=== PATIENT | male | born 1980 | race Caucasian/White ===

== ENCOUNTER 2018-02-05 20:45 | Emergency (ER) | payer BC ==
[2018-02-05 20:50] VITALS: BP 157/86; PULSE 92; TEMP 98.6; BMI 33.9
[2018-02-05] MEDS ORDERED: IBUPROFEN 400 MG TABLET (FP) PO ONE ×2 (21:19→21:26)
--- NOTE | 2018-02-05 21:31 | PDOC ---
History of Present Illness - General Chief Complaint: Injury Stated Complaint: ANKLE INJURY Time Seen by Provider: 02/05/18 21:00 History Source: Patient - History of Present Illness Occurred: reports: this evening Lower Extremity Pain Location: left: foot Method of Injury: Yes: twisted Past History - Past Medical History Allergies/Adverse Reactions: Allergies Allergy/AdvReac Type Severity Reaction Status Date / Time No Known Allergies Allergy Verified 02/05/18 20:47 Home Medications: Ambulatory Orders Oxycodone HCl/Acetaminophen [Oxycodone-Acetaminophen 10-325] 1 each PO ASDIR 11/18 COPD: No - Suicide/Smoking/Psychosocial Hx Smoking History: Never smoked Review of Systems - Review of Systems Musculoskeletal: Yes: Joint Pain. No: Joint Swelling *Physical Exam - Vital Signs Last Vital Signs Temp Pulse Resp BP Pulse Ox 98.6 F 92 H 18 157/86 97 02/05/18 20:47 02/05/18 20:47 02/05/18 20:47 02/05/18 20:47 02/05/18 20:47 - Physical Exam General Appearance: Yes: Appropriately Dressed. No: Apparent Distress HEENT: positive: Normal Voice Neck: positive: Supple Respiratory/Chest: negative: Respiratory Distress Extremity: positive: Tender (to ball of L foot, no joint swelling/deformity). negative: Swelling Integumentary: positive: Dry, Warm Neurologic: positive: Fully Oriented, Alert, Normal Mood/Affect ED Treatment Course - RADIOLOGY Radiology Studies Ordered: Category Date Time Status ANKLE & FOOT-LEFT* [RAD] Stat Radiology 02/05/18 21:19 Ordered Medical Decision Making - Medical Decision Making 02/05/18 21:26 37-year-old male, no significant history, here with left foot pain after injury. Patient states he works for [employer] and while getting off vehicle at work tonight, he triped and fell "twisting" L foot/ankle. Complaining of pain mostly to ball of L foot and toes. Able to bear weight but painful. Denies any other injuries. Patient well-appearing and stable with exam only remarkable for tenderness to ball of left foot diffusely. Most likely muscular. X-ray rule out fracture. Pain control in ED 02/05/18 21:44 X-ray negative for fracture. Ortho shoe and crutches given. DC with Motrin to take as needed for pain and to follow-up with orthopedic if pain persists after 2 weeks *DC/Admit/Observation/Transfer Diagnosis at time of Disposition: Foot injury Qualifiers: Encounter type: initial encounter Laterality: left Qualified Code(s): S99.922A - Unspecified injury of left foot, initial encounter - Discharge Dispostion Disposition: HOME Condition at time of disposition: Good - Referrals - Patient Instructions Printed Discharge Instructions: DI for Foot Sprain Additional Instructions: Take motrin for pain as needed and use crutches for assisted weight bearing until symptoms resolve. If pain persist after 2 weeks, please follow-up with Dr. Loomis of orthopedics - Post Discharge Activity Forms/Work/School Notes: Back to Work
--- NOTE | 2018-02-05 22:15 | PDOC ---
*Physical Exam - Vital Signs Last Vital Signs Temp Pulse Resp BP Pulse Ox 98.6 F 92 H 18 157/86 97 02/05/18 20:47 02/05/18 20:47 02/05/18 20:47 02/05/18 20:47 02/05/18 20:47 ED Treatment Course - RADIOLOGY Radiology Studies Ordered: Category Date Time Status ANKLE & FOOT-LEFT* [RAD] Stat Radiology 02/05/18 21:19 Taken - Medications Given in the ED: ED Medications Discontinued Medications Generic Name Dose Route Start Last Admin Trade Name Moncho PRN Reason Stop Dose Admin Ibuprofen 800 mg 02/05/18 21:19 02/05/18 21:30 Motrin - PO 02/05/18 21:20 800 mg ONCE ONE Administration *DC/Admit/Observation/Transfer Diagnosis at time of Disposition: Foot injury Qualifiers: Encounter type: initial encounter Laterality: left Qualified Code(s): S99.922A - Unspecified injury of left foot, initial encounter - Discharge Dispostion Disposition: HOME Condition at time of disposition: Good - Referrals Referrals: Ramsey Loomis MD [Staff Physician] - - Patient Instructions Printed Discharge Instructions: DI for Foot Sprain Additional Instructions: Take motrin for pain as needed and use crutches for assisted weight bearing until symptoms resolve. If pain persist after 2 weeks, please follow-up with Dr. Loomis of orthopedics - Post Discharge Activity Forms/Work/School Notes: Back to Work
== END 2018-02-05 22:07 | disposition home or self-care (01) ==
LOC: JERFT 20:45
DX: S99.922A Unspecified injury of left foot, initial encounter (principal); W01.0XXA Fall on same level from slipping, tripping and stumbling without subsequent striking against object, initial encounter; Y93.89 Activity, other specified; Y92.89 Other specified places as the place of occurrence of the external cause; Y99.0 Civilian activity done for income or pay
CPT/HCPCS: 73610-TC-LT-FY; 73630-TC-LT; 99281-25

== ENCOUNTER 2019-03-12 13:22 | Emergency (ER) | payer OTHER ==
[2019-03-12 13:27] VITALS: BP 157/105; PULSE 99; TEMP 98.1; BMI 35.2
--- NOTE | 2019-03-12 13:27 | PDOC ---
Rapid Medical Evaluation Medical Evaluation: Allergies Allergy/AdvReac Type Severity Reaction Status Date / Time No Known Allergies Allergy Verified 02/05/18 20:47 I have performed a brief in-person evaluation of this patient. The patient presents with a chief complaint of: got stung at work while doing yard work along arms, back and face Pertinent physical exam findings: erythematous blanching areas along RUE and redness along L ear auricle; no lesions noted I have ordered the following: nothing The patient will proceed to the ED for further evaluation. 03/12/19 13:24
== END 2019-03-12 14:15 | disposition left against medical advice (07) ==
LOC: JERFT 13:22
DX: Z53.21 Procedure and treatment not carried out due to patient leaving prior to being seen by health care provider (principal)
CPT/HCPCS: 99281-25